=== PATIENT | female | born 1990 | race African-American/Black ===

== ENCOUNTER 2017-03-05 23:19 | Emergency (ER) | payer OTHER ==
[~2017-03-05] VITALS: Ht 165.1 cm; Wt 100.0 kg
[2017-03-06] MEDS ORDERED: KETOROLAC 60MG/2ML VIAL IM ONE (01:00)
[2017-03-06] MEDS ORDERED: ACETAMINOPHEN WITH CODEINE 300/30MG TABLET PO ONE (01:45)
[2017-03-06 03:01] VITALS: BP 139/90
== END 2017-03-06 03:05 | disposition home or self-care (01) ==
LOC: ER 23:19
DX: S93.402A Sprain of unspecified ligament of left ankle, initial encounter (principal); S61.411A Laceration without foreign body of right hand, initial encounter; S60.221A Contusion of right hand, initial encounter; V43.52XA Car driver injured in collision with other type car in traffic accident, initial encounter; Y93.89 Activity, other specified; Y92.488 Other paved roadways as the place of occurrence of the external cause
CPT/HCPCS: 73130; 73590; 73610; 81025; 96372; 99284; J1885; Z7610